=== PATIENT | female | born 1965 | race Caucasian/White ===

== ENCOUNTER 2022-11-01 16:55 | Emergency (ER) | payer BC | END 2022-11-01 19:14 | disposition home or self-care (01) | LOC: JP.ED 16:55 | DX: S82.891A Other fracture of right lower leg, initial encounter for closed fracture (principal); I10 Essential (primary) hypertension; E03.9 Hypothyroidism, unspecified; Z88.5 Allergy status to narcotic agent; Z88.8 Allergy status to other drugs, medicaments and biological substances; Z72.0 Tobacco use; V86.59XA Driver of other special all-terrain or other off-road motor vehicle injured in nontraffic accident, initial encounter | CPT/HCPCS: 29515; 73610-26-RT; 73610-RT; 99283 ==